=== PATIENT | male | born 1985 ===

== ENCOUNTER 2024-07-24 15:40 | Emergency (ER) | payer MEDICAID ==
[~2024-07-24] VITALS: Ht 177.8 cm; Wt 101.0 kg
[2024-07-24 15:45] VITALS: BP 142/101; PULSE 107; RESP 18; TEMP 98.1; O2SAT 98
[2024-07-24] MEDS ORDERED: PROPARACAINE HCL 0.5% 15 ML OPHTHALMIC SOLUTION OD ONE (16:30)
[2024-07-24] MEDS ORDERED: FLUORESCEIN SODIUM 1 MG STRIP OD ONE (16:30)
[2024-07-24] MEDS: FLUORESCEIN SODIUM 1 MG STRIP OD ONE (17:08)
[2024-07-24] MEDS: PROPARACAINE HCL 0.5% 15 ML OPHTHALMIC SOLUTION OD ONE (17:08)
== END 2024-07-24 20:18 | disposition home or self-care (01) ==
LOC: EMS 15:40
DX: H53.8 Other visual disturbances (principal); F17.210 Nicotine dependence, cigarettes, uncomplicated; G43.909 Migraine, unspecified, not intractable, without status migrainosus; F12.90 Cannabis use, unspecified, uncomplicated
CPT/HCPCS: 70450; 99284